=== PATIENT | male | born 1980 | race Caucasian/White ===

== ENCOUNTER → 2018-10-19 | Outpatient (REF) | payer BC | LOC: M SMT 18:25 | PROVIDERS: ATTEND Nurse Practitioner Women's Health | DX: N20.0 Calculus of kidney (principal) ==

== ENCOUNTER 2019-08-02 12:16 | Day surgery (SDC) | payer BC ==
[~2019-08-02] VITALS: Ht 182.9 cm; Wt 87.3 kg
[~2019-08-02 12:16] MED LIST: MINO100C4 PO; NS 1,000 ML IV ONE; PANT40TA3 PO; PROBCAP14 PO
[2019-08-02] MEDS ORDERED: propofoL 200 MG/20 ML VIAL As Ordered ONE ×2 (13:21→14:05)
[2019-08-02] MEDS ORDERED: LIDOCAINE 2% INJ 100 MG/5 ML SDV (FOR ANES.) As Ordered ONE (13:21)
--- NOTE | 2019-08-02 14:25 | ROOR ---
Patient Name: Richard Pettit Procedure Date: 08/02/2019 1:55 PM Date of : 1980 Age: 38 Room: [facility] Gender: Male Note Status: Finalized Procedure: Upper GI endoscopy Indications: Heartburn Providers: Tom Hicks MD Referring MD: LISA ACEVEDO MD Requesting Provider: Medicines: Monitored Anesthesia Care Complications: No immediate complications. Procedure: Pre-Anesthesia Assessment: - Prior to the procedure, a History and Physical was performed, and patient medications and allergies were reviewed. The patient is competent. The risks and benefits of the procedure and the sedation options and risks were discussed with the patient. All questions were answered and informed consent was obtained. Patient identification and proposed procedure were verified by the physician, the nurse and the anesthesiologist in the procedure room. Mental Status Examination: alert and oriented. Airway Examination: normal oropharyngeal airway and neck mobility. Respiratory Examination: clear to auscultation. CV Examination: normal. Prophylactic Antibiotics: The patient does not require prophylactic antibiotics. Prior Anticoagulants: The patient has taken no previous anticoagulant or antiplatelet agents. ASA Grade Assessment: II - A patient with mild systemic disease. After reviewing the risks and benefits, the patient was deemed in satisfactory condition to undergo the procedure. The anesthesia plan was to use monitored anesthesia care (MAC). Immediately prior to administration of medications, the patient was re-assessed for adequacy to receive sedatives. The heart rate, respiratory rate, oxygen saturations, blood pressure, adequacy of pulmonary ventilation, and response to care were monitored throughout the procedure. The physical status of the patient was re-assessed after the procedure. The Endoscope was introduced through the mouth, and advanced to the second part of duodenum. The upper GI endoscopy was accomplished without difficulty. The patient tolerated the procedure well. Findings: The Z-line was irregular and was found in the distal esophagus. Biopsies were taken with a cold forceps for histology. Verification of patient identification for the specimen was done by the physician and nurse using the patient's name, date and medical record number. Estimated blood loss was minimal. Scattered moderate inflammation characterized by erythema, friability and granularity was found in the gastric antrum. Biopsies were taken with a cold forceps for Helicobacter pylori testing. The duodenal bulb and second portion of the duodenum were normal. Impression: - Z-line irregular, in the distal esophagus. Biopsied. - Gastritis. Biopsied. - Normal duodenal bulb and second portion of the duodenum. Recommendation: - Patient has a contact number available for emergencies. The signs and symptoms of potential delayed complications were discussed with the patient. Return to normal activities tomorrow. Written discharge instructions were provided to the patient. - Resume previous diet. - Continue present medications. - Follow an antireflux regimen. - Await pathology results. - Telephone GI clinic for pathology results in 2 weeks. - Return to primary care physician. Tom Hicks MD Tom Hicks MD 08/02/2019 2:24:46 PM Electronically signed by Tom Hicks MD Number of Addenda: 0 Note Initiated On: 08/02/2019 1:55 PM Estimated Blood Loss: Estimated blood loss was minimal.
== END 2019-08-02 14:42 | disposition home or self-care (01) ==
LOC: M OPP 12:16
PROVIDERS: ATTEND Internal Medicine Gastroenterology
DX: K22.8 Other specified diseases of esophagus (principal); K29.70 Gastritis, unspecified, without bleeding; R12 Heartburn; Z79.899 Other long term (current) drug therapy

== ENCOUNTER → 2020-11-02 | Outpatient (REF) | payer BC ==
[~2020-11-02] MED LIST changes: -NS 1,000 ML IV ONE; +PANT40TA29 PO; -PANT40TA3 PO
== END ==
LOC: M LAB REF 18:50
PROVIDERS: ATTEND Physician Assistant
DX: D23.22 Other benign neoplasm of skin of left ear and external auricular canal (principal)

== ENCOUNTER → 2021-08-14 | Outpatient (REF) | payer BC | LOC: M LAB REF 14:03 | PROVIDERS: ATTEND Physician Assistant | DX: L83 Acanthosis nigricans (principal); L85.9 Epidermal thickening, unspecified ==